=== PATIENT | female | born 1995 | race African-American/Black ===

== ENCOUNTER 2017-06-07 16:52 | Inpatient (IN) | payer OTHER ==
[~2017-06-07] VITALS: Ht 149.9 cm; Wt 121.1 kg
--- NOTE | ~2017-06-07 | DS ---
Unit #: [id number] #: [id number] Patient: JESSIKA METZGER [id number] [address] [place], [place] [address] [id number] I MR#: [id number] NAME: JESSIKA METZGER. ROOM: 218 Age: 21 Sex: F Admission Date: 06/07/2017 : 1995 Discharge Date: 06/11/2017 Attending Physician: Jagdish Acosta M.D. DISCHARGE SUMMARY DISCHARGE DIAGNOSES Cholecystitis, biliary ductal dilatation, laparoscopic cholecystectomy, endoscopic retrograde cholangiopancreatography. HOSPITAL COURSE The patient is a 21-year-old woman who presented with symptoms of abdominal pain. CAT scan done demonstrated dilated biliary duct following which she underwent ERCP by gastroenterology. Subsequently, the patient underwent lap cholecystectomy without complications. The patient will be discharged today with vitals stable. DISCHARGE MEDICATIONS Rutledge 7.5 mg p.o. q.4 p.r.n. DISCHARGE INSTRUCTIONS To follow up with surgery after 10 days for staple removal in Dr. Stoner's office, also follow up with Gastroenterology in 2 to 4 weeks post ERCP, follow up with primary care physician. Dictated by... Adalberto Gonzalez/jen TD: 06/14/2017 02:13 JOB #: [id number] DISCHARGE SUMMARY Page 1 of 1 X X DISCHARGE SUMMARY
--- NOTE | ~2017-06-07 | US6 ---
[facility] A Service of [facility] & [facility] RADIOLOGY TEXT RESULTS PATIENT: JESSIKA METZGER LOCATION: [facility] 218-01 : 94 UNIT #: [id number] AGE: [address]: John Powers MD SEX: F ORDER DR: [id number] [place] [address] [facility]. [place], [place] [address] [id number] I MR#: [id number] Acc #: [id number] NAME: JESSIKA MTEZGER : 1995 SEX: F STUDY DATE/TIME: 06/08/2017 8:28 UNIT: [facility] ROOM: 218 STUDY DESCRIPTION: US Abdominal Limited Attending Physician: John Powers M.D. Ordering Physician: Luis M Bravo M.D. MEDICAL IMAGING REPORT This report is preliminary unless electronic signature is present EXAM Right upper quadrant ultrasound, 06/08/2017 INDICATION Abdominal pain for years worsening the past week. TECHNIQUE Sonographic imaging of the right upper quadrant was performed. COMPARISON Correlation is made with CT 06/07/2017 FINDINGS Visualized pancreas unremarkable. The liver measures approximately 18.8 cm long axis. There is no focal liver mass. Echogenicity of the liver is slightly increased compared to the right kidney and appears to attenuate the ultrasound beam suggestive of mild fatty infiltration. No evidence of ascites. Intrahepatic ductal dilatation identified on the prior CT is less well demonstrated on ultrasound today. The right kidney is nonobstructed measuring 11.5 cm long axis. The extrahepatic common bile duct is dilated up to 7 mm. There is a positive sonographic Weems's sign. However, there is no gallbladder wall thickening or pericholecystic fluid. Gallbladder wall measures on the order of about 2 mm. There is a mobile shadowing gallstone within the gallbladder lumen. No distinct ultrasound evidence of acute cholecystitis. Etiology for the extrahepatic common bile duct dilatation and intrahepatic ductal dilatation better demonstrated on CT is unclear. This could be best further assessed with ERCP. No distinct filling defect in the visualized aspects of the common bile duct. IMPRESSION 1. Cholelithiasis without additional ultrasound evidence of acute [facility] A Service of [facility] & [facility] RADIOLOGY TEXT RESULTS PATIENT: JESSIKA METZGER LOCATION: [place] [address] : [birth year] UNIT #: [id number] AGE: [address]: John Powers MD SEX: F ORDER DR: cholecystitis although the technologist did report a positive sonographic Weems's sign. This is otherwise nonspecific given the appearance of the gallbladder on ultrasound. 2. Extrahepatic biliary ductal dilatation up to 7 mm. Etiology is unclear. This could be best further assessed with ERCP. 3. The prior CT demonstrated intrahepatic biliary ductal dilatation not well visualized on this ultrasound. 4. Findings suggestive of fatty infiltration of the liver. STAT * RESULT Dictated by... Ammon Velásquez M.D. THIS IS AN ELECTRONICALLY VERIFIED REPORT Ammon Velásquez M.D. at 06/08/2017 2:52 PM Tomeka TD: 06/08/2017 08:55 JOB #: [id number] MEDICAL IMAGING REPORT Page 1 of 1 COPY
--- NOTE | ~2017-06-07 | A ---
[facility] Nutrition Therapy DATE: 06/09/17 Patient: JESSIKA METZGER Physician: SHIRIN Address: [address] [place] [address] Room/Bed: [address] [place] [address], Zip: [place] [address] Admit Date: 06/07/17 Date of : 94 Height: 4 11 Weight: 267 121.1 NUTRITIONAL ASSESSMENT: REASON: High BMI documentation + 1 point malnutrition risk score re: /lactating Admitting dx: 21 y/o female admitted with abdominal pain PMH: 2-1 ppd smoker, obesity, AGUSTÍN on home CPAP Anthropometrics: Ht: 59", Wt: 266 lbs, BMI: 53 (stage III obese) Labs: AST 46, ALT 83 Meds: Lovenox, Morphine, Zofran prn, PPI I/O & Bowel function: BM 06/08 Skin Integrity: No significant issues, no edema Estimated Nutrition Needs: Increase due to Assessment: Chart reviewed, events noted. See admitting dx and PMH as stated above. CT scan showed dilated common bile duct (CBD) with distal CBD obstruction. Pt had u/s that confirmed fatty liver and cholelithiasis. She is currently NPO for ERCP today. She was on a regular diet yesterday which was changed to full liquids after her u/s. She scored 1 point on the malnutrition risk screen for /lactating. She delivered her 2nd baby in April of this year and states she has been and using formula to supplement because the baby was premature, however she states she is no longer going to given her current medical issues. She states she has had no recent weight loss but has had abdominal pain with occasional emesis due to her clinical issues as stated above. She is hungry and wanting to eat. Of note, she is morbidly obese. She reports normally getting adequate kcal, protein and fluid intake. See RD recs below. Dx: No nutrition dx Intervention: Diet as tolerated Monitoring, Evaluation and Goals: 1. Tolerance of oral diet with PO intake > 50% of meals. 2. Gradual weight loss towards a healthy BMI range (will no longer be ). Monitor: per protocol, criteria to determine if above goals met [facility] Nutrition Therapy DATE: 06/09/17 Patient: JESSIKA METZGER Physician: SHIRIN Address: [address] [facility] Room/Bed: [address] [place] [address], Zip: [place] [address] Admit Date: 06/07/17 Date of : 94 Height: 4 11 Weight: 267 121.1 Recommendations: 1. Healthy heart diet as tolerated to promote a gradual weight loss towards a healthy BMI range. 2. Please consult RD with any further nutritional needs. Not at nutritional risk Will f/u at length of stay Respectfully, Liane Rayo RD, LD [facility] cc: client file
--- NOTE | ~2017-06-07 | CT2 ---
[facility] A Service of [facility] & [facility] RADIOLOGY TEXT RESULTS PATIENT: JESSIKA METZGER LOCATION: [facility] 218-01 : 94 UNIT #: [id number] AGE: [address]: John Powers MD SEX: F ORDER DR: [id number] [place] [id number] [facility]. [place], [place] [address] [id number] I MR#: [id number] Acc #: [id number] NAME: JESSIKA METZGER. : 1995 SEX: F STUDY DATE/TIME: 06/07/2017 19:15 UNIT: [facility] ROOM: 218 STUDY DESCRIPTION: CT Abd and Pelv W Cont Attending Physician: John Powers M.D. Ordering Physician: Luis M Bravo M.D. MEDICAL IMAGING REPORT This report is preliminary unless electronic signature is present EXAM CT abdomen and pelvis with contrast HISTORY Upper abdominal pain for 4 days, elevated LFTs. Recent 09 May. TECHNIQUE Axial images form through the abdomen and pelvis following IV contrast. Multiplanar reconstructed images reviewed at a workstation. This CT exam was performed with one or more of the following radiation dose reduction techniques: automatic exposure control, adjustment of mA and/or kV according to patient size, and iterative reconstruction. FINDINGS ABDOMEN: Lung bases unremarkable. The liver demonstrates mild ductal dilatation and a mildly dilated common bile duct measuring up to 11 mm. No discrete distal stone is identified. No pancreatic ductal dilatation. The gallbladder demonstrates a subtle density in the dependent portion of the gallbladder that could represent partial volume artifact or a small stone. The spleen and adrenal glands are unremarkable. Small nonobstructing stone upper pole left kidney. Right kidney unremarkable. Visualized GI tract appears normal. PELVIS: The uterus mildly enlarged with some endometrial fluid and a defect in the anterior myometrium consistent with the patient's history of recent section. There is some induration of the soft tissues in the anterior pelvis and along the anterior abdominal wall, again compatible with recent . Bladder unremarkable. No evidence of a pelvic abscess or fluid collection. Osseous structures are unremarkable. Generalized obesity. STS. [facility] A Service of [facility] & [facility] RADIOLOGY TEXT RESULTS PATIENT: JESSIKA METZGER LOCATION: [place] [address] : [birth year] UNIT #: [id number] AGE: [address]: John Powers MD SEX: F ORDER DR: IMPRESSION 1. Dilated common bile duct to the level of the distal duct as well as mild intrahepatic ductal dilatation. Findings raise the concern for possible obstructing lesion though distinct obstructing lesion is not seen by CT. Further evaluation with ultrasound and ERCP may be of benefit. 2. Subtle density in the dependent portion of the gallbladder could represent a small stone but no CT evidence of acute cholecystitis. 3. Enlarged uterus with some endometrial fluid and changes along the anterior myometrium and anterior pelvis consistent with recent section. Dictated by... Michael Singer M.D. THIS IS AN ELECTRONICALLY VERIFIED REPORT Michael Singer M.D. at 06/08/2017 7:37 PM [place] TD: 06/08/2017 16:58 JOB #: [id number] MEDICAL IMAGING REPORT Page 1 of 1 COPY
--- NOTE | ~2017-06-07 | HP ---
Unit #: [id number] #: [id number] Patient: JESSIKA METZGER [id number] [address] [place], [place] [address] [id number] I MR#: [id number] NAME: JESSIKA METZGER ROOM: 218 Age: 21 Sex: F Admission Date: 06/07/2017 : 1995 Attending Physician: John Powers M.D. HISTORY AND PHYSICAL CHIEF COMPLAINT Chief complaint is abdominal pain. DISCUSSION This is a 21-year-old female who has a past medical history of obstructive sleep apnea - on CPAP, obesity, tobacco abuse. She presented today with chief complaint of abdominal pain mainly in upper abdomen, epigastric area. Pain started on Friday and initially was off and on, now is constant, severe pain, and she says she feels like nauseous but no vomiting. No diarrhea. No constipation. No fever. No chills. No dysuria. No headache. No other complaint. On workup in the emergency room she had a CT scan, which shows dilated common bile duct. There is concern for obstructive lesion versus stone, and she eventually been admitted. She denies any dysuria, but urine consistent with UTI. She denies any other complaint. PAST MEDICAL HISTORY 1. History of obstructive sleep apnea, on CPAP. 2. Obesity. 3. Tobacco abuse. PAST SURGICAL HISTORY 1. She had a x2 in the past, "last time" in May 2016, second is April 2017. 2. Tubal ligation. SOCIAL HISTORY She smoked 1 pack daily for last 5 years. Denies alcohol. Denies illicit drug use. FAMILY HISTORY Mother with hypertension, diabetes. Mother has history of gallstones with cholecystectomy. HOME MEDICATIONS She does not take any medication. REVIEW OF SYSTEMS Negative except as history of present illness. PHYSICAL EXAMINATION GENERAL: On examination, 21-year-old female lying in the bed comfortably, currently not any distress. On general examination, she is alert, awake, Unit #: [id number] #: [id number] Patient: JESSIKA METZGER oriented x3, comfortable, not any distress. CURRENT VITALS ARE FOLLOWING: Temp is 98.3, heart rate 90, respirations 16 and blood pressure 124/77. Oxygen is 100% on room air. HEENT: On HEENT examination, pupils equally reactive to light and accommodation. Head is normocephalic, atraumatic. NECK: Supple. No JVD. HEART: S1, S2. Regular rate and rhythm. LUNGS: Clear to auscultation bilaterally. No rhonchi. No wheezing. ABDOMEN: Abdomen is soft. Mild epigastric tenderness positive. No guarding. No rigidity. EXTREMITIES: Inspection normal. No cyanosis. No clubbing. No edema. NEUROLOGIC: No focal neurologic deficits. Cranial nerves II-XII intact and power 5/5 on both sides. PSYCH: Normal mood, affect. SKIN: Warm and dry. DIAGNOSTIC STUDIES LABORATORY WORKUP IS FOLLOWING: Sodium 139, potassium 3.6, chloride 103, glucose 84, BUN 9, creatinine 0.8, AST 239, ALT 108, alkaline phos 152. Amylase, lipase normal. UA shows cloudy appearance and WBC 5 to 10. White count is 9.6, hemoglobin 13, hematocrit 39, platelet is 275. IMAGING: She has a CT scan of the abdomen, which shows dilated common bile duct on the CT scan. ASSESSMENT AND PLAN 1. Abdominal pain with abnormal CT scan, dilated common bile duct concerning for obstructive lesion versus stones with abnormal LFT, obstructive. Will admit the patient, 23 observation, ask GI, Dr. Short to evaluate for ERCP. Will repeat, also, ultrasound of gallbladder in the morning. Keep regular diet. NPO from midnight. 2. UTI. Will start some IV Rocephin. 3. Obstructive sleep apnea, on CPAP. 4. Obesity. 5. Tobacco abuse. 6. DVT and GI prophylaxis. Will place the patient on Protonix and Lovenox. Dictated by Adalberto Hillman TD: 06/08/2017 08:24 JOB #: [id number] HISTORY AND PHYSICAL Page 1 of 1 X X HISTORY AND PHYSICAL
--- NOTE | ~2017-06-07 | CR84 ---
[facility] A Service of [facility] & [facility] RADIOLOGY TEXT RESULTS PATIENT: JESSIKA METZGER LOCATION: [facility] 218-01 : [birth year] UNIT #: [id number] AGE: [address]: KEYONA STANTON V SEX: F ORDER DR: [id number] [facility] [address] [place], [place] [address] [id number] I MR#: [id number] Acc #: [id number] NAME: JESSIKA METZGER. : 1995 SEX: F STUDY DATE/TIME: 06/09/2017 18:16 UNIT: [facility] ROOM: [facility] STUDY DESCRIPTION: CR ERCP Biliary and Pancr SI Attending Physician: Keyona Stanton M.D. Ordering Physician: Eric Short M.D. MEDICAL IMAGING REPORT This report is preliminary unless electronic signature is present EXAM ERCP 06/09/2017. HISTORY Right upper quadrant abdominal pain since 06/03/2017 with dilated common bile duct noted on CT scan of the abdomen and pelvis dated 06/08/2016. Abnormally elevated liver enzymes. Cholelithiasis. TECHNIQUE ERCP was performed by Dr. Short. 4 spot film radiographs of the upper abdomen were obtained, and 2 minutes 6 seconds of fluoroscopy time was utilized. The pancreatic duct was not injected. Contrast injection of the biliary tree shows dilatation of the common bile duct. There is normal drainage of contrast into the duodenum and the distal common bile duct near the sphincter of Oddi was normal in appearance. Sphincterotomy was performed by Dr. Short. The balloon catheter was pulled retrograde through the common duct, but no stones were obtained, as per Dr. Short. The stent was then placed in the common bile duct. Dictated by... Lance Marmolejo M.D. THIS IS AN ELECTRONICALLY VERIFIED REPORT Lance Marmolejo M.D. at 06/10/2017 2:19 PM Marlen TD: 06/10/2017 13:17 JOB #: [id number] MEDICAL IMAGING REPORT Page 1 of 1 COPY
--- NOTE | ~2017-06-07 | CO ---
Unit #: [id number] #: [id number] Patient: JESSIKA DHILLON [id number] [address] [place], [place] [address] [id number] I MR#: [id number] NAME: JESSIKA DHILLON ROOM: 218 Age: 21 Sex: F Admission Date: 06/07/2017 : 1995 Attending Physician: John Powers M.D. Consultation Date: 06/08/2017 CONSULTATION REPORT ADDITIONAL ATTENDING PHYSICIAN Bang Acuña M.D. REASON FOR CONSULTATION Dilated common bile duct in the patient with history of biliary pain. HISTORY OF PRESENT ILLNESS Ms. Dhillon is a 21-year-old female. The patient says she had a biliary pain or pain in the epigastric and right upper quadrant of the abdomen last year when she delivered a baby and since then, she has been asymptomatic until recently when the pain started again. She was given IV analgesia in the emergency room and since then has felt better. Upon admission, a CT scan shows dilated common bile duct with distal CBD obstruction. The patient is feeling better since after analgesia. There is no history of weight loss and her appetite is unchanged. PAST MEDICAL HISTORY There is no significant past medical history and has had no prior surgeries. The patient still has intact gallbladder. MEDICATIONS She is not on regular medications. ALLERGIES No known drug allergies. SOCIAL HISTORY She does smoke half to one pack of cigarette daily. Does not drink alcohol. FAMILY HISTORY None of colon, pancreatic cancer, or liver disease. REVIEW OF SYSTEMS Detailed review of organ systems does not reveal any recent weight loss. No history of fever, chills, or rigors. No history of headache, seizures, chest pain, or syncope. No history of cough, expectoration, or hemoptysis. No history of dysuria, hematuria, or pyuria. No history of focal seizures or extremity weakness. PHYSICAL EXAMINATION GENERAL: She is awake, alert, oriented, and appears comfortable. VITAL SIGNS: Stable with a temperature of 98.4, pulse 65 per minute and regular, respiratory rate is 18, blood pressure 140/91. She weighs 266 Unit #: [id number] #: [id number] Patient: JESSIKA DHILLON pounds and is clearly obese. HEENT: She has no pallor, icterus, lymphadenopathy, or peripheral edema. CARDIOVASCULAR: Normal heart sounds. No murmurs on auscultation. LUNGS: Reveals normal breath sounds. Good air entry. ABDOMEN: Soft, obese, and nontender. Liver and spleen are not palpable. Bowel sounds normal. DIAGNOSTIC STUDIES LABORATORY RESULTS: Shows normal CBC and serum chemistry shows elevated hepatic transaminases and a total bilirubin of 1.1. AST, ALT, and alkaline phosphatase are 239, 108, and 21. IMAGING STUDIES: CT scan shows dilated common bile duct, however, the dilation seems to be suggestive of distal CBD obstruction, most likely stone. MANAGEMENT PLAN An endoscopic retrograde cholangiopancreatography with biliary clearance followed by laparoscopic cholecystectomy is needed if it is indeed stone disease. We will also obtain the patient's hepatitis profile as the liver functions may equally will be from hepatitis. We will also repeat LFTs tomorrow. The pros and cons of procedure, potential risks, and complications were discussed with the patient including possibility of perforation, bleeding, and complications related to pancreatitis. Thank you very much for asking me to see this pleasant woman. I appreciate the consult. Dictated by... Adalberto Burleson/jen TD: 06/08/2017 06:45 JOB #: [id number] CC: . CONSULTATION REPORT Page 1 of 1 X Eric Short MD CONSULTATION REPORT
--- NOTE | ~2017-06-07 | OR ---
Unit #: [id number] #: [id number] Patient: JESSIKA METZGER [id number] [address] [place], [place] [address] [id number] I MR#: [id number] NAME: JESSIKA METZGER. ROOM: 218 Date of Procedure: 06/10/2017 Admission Date: 06/07/2017 Surgeon: Vasyl Martínez Jr., M.D. : 1995 Attending Physician: Jagdish Acosta M.D. OPERATIVE REPORT INDICATIONS FOR PROCEDURE The patient is a 21-year-old white female, one month status , who has developed severe right upper quadrant mid epigastric abdominal pain. She has been worked up and noted to have evidence of probable chronic cholecystitis. She did have some elevation of liver function tests and had an ERCP yesterday, which revealed no obvious stones. A stent was placed. The patient is presently asymptomatic. She is brought to the operating room at this time for laparoscopic cholecystectomy. She understands the procedure including the risks, including that of perforation, bleeding, and intra-abdominal organ injury, and common duct injury, and biliary leak, and consents. PREOPERATIVE DIAGNOSES Cholecystitis with possible cholelithiasis. POSTOPERATIVE DIAGNOSES Cholecystitis with possible cholelithiasis, noting multiple intraabdominal adhesions. There was a small ventral hernia in the left lower quadrant of her abdomen. ANESTHESIA General with endotracheal intubation and 0.25% Marcaine with epinephrine locally. PROCEDURE PERFORMED Laparoscopic cholecystectomy. DESCRIPTION OF PROCEDURE The patient was positioned in supine position. After being anesthetized and intubated, she was prepped and draped in routine fashion for laparoscopic cholecystectomy. A small supraumbilical incision made approximately a 1 cm in length. This was carried down to the fascia. Fascia lifted between 2 Rayna clamps and a Veress needle introduced into the abdomen. The abdomen was then inflated with CO2 gas and a 5-mm port was introduced into the abdomen followed by the camera. There was no evidence of any injury related to introduction of the port of the Veress needle. Brief intraabdominal exploration was carried out. The patient was found to have multiple adhesions to the lower abdomen with a small ventral hernia in the lower midline area as well as to the left lower quadrant area. There was a chronic inflamed gallbladder. Two 5-mm ports were placed laterally and an 11-mm port just to the right of the upper midline. The gallbladder was lifted. Dissection was carried out in the Unit #: [id number] #: [id number] Patient: JESSIKA METZGER triangle of Calot, cystic duct was isolated, along with cystic artery. Cystic artery was inferior to the cystic duct with some unusual anatomy. It was then hemoclipped x3 and divided. The cystic duct itself was isolated. The common duct appeared normal. Cystic duct was hemoclipped x4 and divided approximately a 1 cm from its junction with the common duct. Additional branch of the cystic artery was noted up in the triangle of Calot, which was hemoclipped and divided. The gallbladder was then removed from its bed with the hook cautery using a current of 20 and after it was released, it was removed through the upper midline incision along with the grasping clamp and the port. The port was replaced. Subhepatic space checked. There was no evidence of any bleeding from gallbladder bed. The clips on cystic duct and cystic artery were intact with no evidence of any leak or bleeding. The CO2 was then expressed from the abdomen. The fascia in the larger port site closed with the neoClose technique. The wounds were irrigated and after hemostasis achieved with Bovie cautery, skin edges were approximated with stainless-steel skin clips and skin stapling device. Sterile dressings were applied externally after the port sites were injected with 0.25% Marcaine with epinephrine. Estimated blood loss less than 50 mL. The patient received less than 1500 mL crystalloid solution during the procedure. Sponges and instrument counts were correct x3. No drains were used. No complications. The patient was taken to the recovery room with stable vital signs in satisfactory condition. Dictated by... Vasyl Martínez Jr., M.D. JMB/jen TD: 06/10/2017 16:37 JOB #: [id number] OPERATIVE REPORT Page 1 of 1 X Vasyl Martínez MD X PROCEDURE OPERATIVE NOTE
--- NOTE | ~2017-06-07 | OR ---
Unit #: [id number] #: [id number] Patient: JESSIKA METZGER [id number] [address] [address] [id number] I MR#: [id number] NAME: JESSIKA METZGER. ROOM: 218 Date of Procedure: 06/09/2017 Admission Date: 06/07/2017 Surgeon: Eric Short M.D. : 1995 Attending Physician: Jagdish Acosta M.D. OPERATIVE REPORT ADDITIONAL ATTENDING PHYSICIAN Dr. Jagdish Acosta. PREOPERATIVE DIAGNOSES The patient had presented with history of biliary pain and dilated common bile duct. PROCEDURES PERFORMED 1. Endoscopic retrograde cholangiopancreatography with biliary and pancreatic stent placements. 2. Endoscopic retrograde cholangiopancreatography and removal of the common bile duct debris. POSTOPERATIVE DIAGNOSES 1. Ampullary or papillary stenosis. 2. Dilated common bile duct. 3. The cystic duct was patent and filled on an occlusion cholangiogram. 4. Although, the patient had some debris in the common bile duct. No stones were seen. The common bile duct was dilated to about 9 mm. RECOMMENDATIONS The patient has had a biliary pain and should undergo laparoscopic cholecystectomy. A surgical consult is therefore being obtained. SEDATION USED MAC. DESCRIPTION OF PROCEDURE Following detailed explanation of the potential risks and complications of an ERCP, namely perforation, bleeding, and complications related to sedation, and pancreatitis, the patient was brought to GI lab and laid in the left semiprone position. A preliminary upper GI endoscopy was performed, which was normal. A lateral viewing duodenoscope was advanced through the oral cavity into the esophagus and advanced into the stomach. Pylorus was intubated in the usual fashion. The scope was advanced in deep descending duodenum. Upon shortening the scope, major papilla and ampullary area was visualized; however en face visualization was not possible in the short position. Therefore, the long position of the scope was chosen and at this position, guidewire based cannulation was attempted. Initially, pancreatic duct was cannulated and the guidewire in the pancreatic duct was stabilized and anchored. The common bile duct was then cannulated after multiple attempts and using double wire technique. Unit #: [id number] #: [id number] Patient: JESSIKA METZGER Contrast cholangiogram showed dilated common bile duct about 9 mm. A 1 cm sphincterotomy was performed. The duct was swept with a 9 to 12 mm retrieval balloon multiple times. Small amount of debris was delivered in the common bile duct. The cystic duct was filled easily and so did the gallbladder. A 10-Maltese x 7 cm biliary stent and a 5-Maltese x 5 cm pancreatic stent were deployed. Excellent biliary drainage was documented. The scope and the accessories were then withdrawn. The patient returned to the recovery area. She tolerated the procedure without any postprocedure complications. Dictated by... Adalberto Burleson/jen TD: 06/11/2017 13:35 JOB #: [id number] CC: Adalberto Hillman M.D. OPERATIVE REPORT Page 1 of 1 X Eric Short MD X PROCEDURE OPERATIVE NOTE
--- NOTE | ~2017-06-07 | CO ---
Unit #: [id number] #: [id number] Patient: JESSIKA DHILLON [id number] [address] [address] [id number] MR#: [id number] NAME: JESSIKA DHILLON. ROOM: 218 Age: 21 Sex: F Admission Date: 06/07/2017 : 1995 Attending Physician: Jagdish Acosta M.D. Consultation Date: 06/10/2017 CONSULTATION REPORT HISTORY OF PRESENT ILLNESS Ms. Dhillon is a 21-year-old black female, status post ERCP, who is obese with chronic obstructive pulmonary disease and sleep apnea, who has what appears to be cholecystitis. PAST MEDICAL HISTORY No allergies. She has had no episodes like this before. PAST SURGICAL HISTORY Only surgery is section. MEDICATIONS She takes no significant medications at home. PHYSICAL EXAMINATION GENERAL: Cooperative, alert black female. HEENT: Clear. There is no jaundice at present. CHEST: Clear. CARDIAC: Rhythm is regular. ABDOMEN: Soft, nontender. No peritoneal signs. EXTREMITIES: Full range of motion for the patient's stated age. PLAN The patient with cholecystitis. Recommend laparoscopic cholecystectomy. Risks have been explained to the patient. She understands. We will obtain some laboratory data post ERCP to make sure it is within normal limits prior to surgery. Dictated by... Adalberto Larose/jen TD: 06/10/2017 07:12 JOB #: [id number] Unit #: [id number] #: [id number] Patient: JESSIKA DHILLON CONSULTATION REPORT Page 1 of 1 X Jesus Whaley MD X CONSULTATION REPORT
[2017-06-07 18:02] LABS: URINE SOURCE CLEAN CATCH
[2017-06-07 18:03] LABS: BASOPHIL% 0.3 % (0-2.5); EOSINOPHIL# 0.1 X10e3 (0-0.7); EOSINOPHIL% 0.8 % (0.0-7.0); HEMATOCRIT 39.8 % (35.0-45.0); HEMOGLOBIN 13.1 gm/dL (12.0-16.0); LYMPHOCYTE% 21.2 % (17.0-45.0); MEAN CORPUSCULAR HEMOGLOBIN 27.9 PG (28-34); MEAN CORPUSCULAR HGB CONC 32.9 g/dL (30-36); MEAN PLATELET VOLUME 7.5 FL (6.5-11.5); MONOCYTE# 0.7 X10e3 (0-1.0); MONOCYTE% 7.3 % (3.0-12.0); NEUTROPHIL# 6.8 X10e3 (1.5-7.1); NEUTROPHIL% 70.4 % (40-75); PLATELET COUNT 275 X10e3 (140-420); RED BLOOD COUNT 4.68 X10e (3.90-5.30); WHITE BLOOD COUNT 9.6 X10e3 (4.0-10.5)
[2017-06-07 18:07] LABS: URINE APPEARANCE CLOUDY; URINE BLOOD NEG (NEG); URINE COLOR DK YELLOW; URINE GLUCOSE NEG (NEG); URINE KETONE NEG (NEG); URINE LEUKOCYTE ESTERASE TRACE (NEG); URINE NITRATE NEG (NEG); URINE PROTEIN 1+ (NEG); URINE SPECIFIC GRAVITY 1.023 (1.003-1.035)
[2017-06-07 18:08] LABS: DIFF IND NO
[2017-06-07 18:10] LABS: CULTURE INDICATED? YES; URINE BACTERIA AUWI 1+ (NEGATIVE); URINE SQUAMOUS EPITHELIAL CELL MANY /[HPF]
[2017-06-07 18:13] LABS: URINE BILIRUBIN POS (NEG)
[2017-06-07 18:35] LABS: ALBUMIN SERUM 3.8 g/dL (3.5-5.0); BILIRUBIN, DIRECT 0.6 mg/dL (0.0-0.2); BILIRUBIN,INDIRECT 0.5 mg/dL (0.0-0.9); BILIRUBIN,TOTAL 1.1 mg/dL (0.2-2.0); BUN/CREATININE RATIO 11.25; CALCIUM SERUM 8.8 mg/dL (8.4-10.2); CREATININE SERUM 0.8 mg/dL (0.6-1.4); GLOM FILT RATE Estimated 121.4 mL/min (>60); POTASSIUM 3.6 mmol/L (3.5-5.1); PROTEIN TOTAL SERUM 7.3 g/dL (6.0-8.3)
[2017-06-07] MEDS ORDERED: NO HOME MEDS (23:01)
[2017-06-08 07:20] LABS: ALBUMIN SERUM 3.1 g/dL (3.5-5.0); BILIRUBIN,TOTAL 0.4 mg/dL (0.2-2.0); BUN/CREATININE RATIO 7.77; CALCIUM SERUM 8.2 mg/dL (8.4-10.2); CREATININE SERUM 0.9 mg/dL (0.6-1.4); GLOM FILT RATE Estimated 105.3 mL/min (>60); POTASSIUM 4.1 mmol/L (3.5-5.1)
[2017-06-09 06:08] LABS: HEMATOCRIT 36.9 % (35.0-45.0); MEAN CELL VOLUME 85.3 FL (83-96); MEAN CORPUSCULAR HEMOGLOBIN 27.7 PG (28-34); MEAN CORPUSCULAR HGB CONC 32.5 g/dL (30-36); MEAN PLATELET VOLUME 7.6 FL (6.5-11.5); RED BLOOD COUNT 4.33 X10e (3.90-5.30); WHITE BLOOD COUNT 10.7 X10e3 (4.0-10.5)
[2017-06-09 06:28] LABS: PROTHROMBIN TIME (PATIENT) 10.6 SECONDS (10.0-11.7)
[2017-06-09 08:49] LABS: ALBUMIN SERUM 3.1 g/dL (3.5-5.0); BILIRUBIN,TOTAL 0.3 mg/dL (0.2-2.0); BUN/CREATININE RATIO 6.36; CALCIUM SERUM 8.5 mg/dL (8.4-10.2); CREATININE SERUM 1.1 mg/dL (0.6-1.4); GLOM FILT RATE Estimated 82.6 mL/min (>60); POTASSIUM 4.6 mmol/L (3.5-5.1); PROTEIN TOTAL SERUM 5.9 g/dL (6.0-8.3)
[2017-06-10 07:08] LABS: ALBUMIN SERUM 3.1 g/dL (3.5-5.0); BILIRUBIN,TOTAL 0.1 mg/dL (0.2-2.0); BUN/CREATININE RATIO 7.77; CALCIUM SERUM 8.5 mg/dL (8.4-10.2); CREATININE SERUM 0.9 mg/dL (0.6-1.4); GLOM FILT RATE Estimated 105.3 mL/min (>60); POTASSIUM 3.9 mmol/L (3.5-5.1); PROTEIN TOTAL SERUM 6.3 g/dL (6.0-8.3)
[2017-06-11 07:17] LABS: HA AB IGM (HEPPAN) Nonreactive (()); HB CORE AB IGM (HEPPAN) Nonreactive (Nonreactive); HB S AG (HEPPAN) Nonreactive (Nonreactive); HEP C AB (HEPPAN) Nonreactive (Nonreactive); HEP C AB SIGNAL TO CUTOFF 0.02 ratio (<1.00)
[2017-06-11 07:24] LABS: HEMATOCRIT 34.1 % (35.0-45.0); HEMOGLOBIN 11.2 gm/dL (12.0-16.0); MEAN CELL VOLUME 85.2 FL (83-96); MEAN CORPUSCULAR HEMOGLOBIN 27.8 PG (28-34); MEAN CORPUSCULAR HGB CONC 32.7 g/dL (30-36); MEAN PLATELET VOLUME 7.7 FL (6.5-11.5); RED BLOOD COUNT 4.01 X10e (3.90-5.30); RED CELL DISTRIBUTION WIDTH 13.7 % (11.0-15.5); WHITE BLOOD COUNT 12.1 X10e3 (4.0-10.5)
[2017-06-11 08:07] LABS: ALBUMIN SERUM 3.1 g/dL (3.5-5.0); BILIRUBIN,TOTAL 0.1 mg/dL (0.2-2.0); BUN/CREATININE RATIO 7.77; CALCIUM SERUM 8.7 mg/dL (8.4-10.2); CREATININE SERUM 0.9 mg/dL (0.6-1.4); GLOM FILT RATE Estimated 105.3 mL/min (>60); POTASSIUM 3.9 mmol/L (3.5-5.1); PROTEIN TOTAL SERUM 5.7 g/dL (6.0-8.3)
[2017-06-11] MEDS ORDERED: NORCO 7.5-3251 EACH PO (17:21)
== END 2017-06-11 17:40 | disposition home or self-care (01) | DRG 417 ==
LOC: CED 16:52 → CEDOF 20:00 → C2A 20:00 → CED 20:11 → CEDOF 20:11 → C2A 22:26
PROVIDERS: Emergency Medicine; Internal Medicine Gastroenterology; Surgery
PROC: 0F798DZ Dilation of Common Bile Duct with Intraluminal Device, Via Natural or Artificial Opening Endoscopic (ICD-10-PCS; 2017-06-09 18:44)
PROC: 0F7D8DZ Dilation of Pancreatic Duct with Intraluminal Device, Via Natural or Artificial Opening Endoscopic (ICD-10-PCS; 2017-06-09 18:44)
PROC: 0FT44ZZ Resection of Gallbladder, Percutaneous Endoscopic Approach (ICD-10-PCS; principal; 2017-06-10 14:30)
DX: K81.9 Cholecystitis, unspecified (principal); K83.1 Obstruction of bile duct; Z68.43 Body mass index [BMI] 50.0-59.9, adult; N39.0 Urinary tract infection, site not specified; G47.33 Obstructive sleep apnea (adult) (pediatric); E66.01 Morbid (severe) obesity due to excess calories; F17.200 Nicotine dependence, unspecified, uncomplicated; J44.9 Chronic obstructive pulmonary disease, unspecified; Z98.51 Tubal ligation status; Z83.3 Family history of diabetes mellitus; Z82.49 Family history of ischemic heart disease and other diseases of the circulatory system; Z83.79 Family history of other diseases of the digestive system
CPT/HCPCS: 36415; 74177; 74330; 76705; 80048; 80053; 80074; 80076; 81003; 82150; 83690; 84702; 84703; 85025; 85027; 85610; 87086; 88304; 94010; 96361; 96374; 96375; 99285; C9113; J0131; J0330; J0696; J1170; J1650; J2250; J2270; J2405; J2710; J2765; J3010; Q9967